=== PATIENT | male | born 1970 ===

== ENCOUNTER 2023-07-20 04:54 | Day surgery (SDC) | payer SELFPAY ==
[2023-07-19 14:49] VITALS: BMI 32.9
[2023-07-20] MEDS ORDERED: FENTANYL CITRATE/PF 50 MCG/ML VIAL ONE (07:20)
[2023-07-20] MEDS ORDERED: MIDAZOLAM HCL 2 MG/2 ML SINGLE DOSE VIAL ONE ×2 (07:21→07:23)
[2023-07-20] MEDS ORDERED: PROPOFOL 40 ML ONE (07:21)
[2023-07-20] MEDS ORDERED: ROPIVACAINE HCL 0.5% 30ML VIAL ONE (07:27)
[2023-07-20] MEDS ORDERED: DEXAMETHASONE SOD PHOSPHATE 4 MG/1 ML VIAL ONE (07:27)
[2023-07-20] MEDS ORDERED: ceFAZolin SODIUM 1 GM VIAL IVPB ONE (08:25)
[2023-07-20] MEDS ORDERED: ceFAZolin SODIUM 1 GM VIAL ONE (08:27)
[2023-07-20] MEDS ORDERED: oxyCODONE HCL 5 MG TABLET PO PRN (09:41)
[2023-07-20] MEDS ORDERED: LACTATED RINGERS SOLUTION 1,000 ML IV SCH (09:45)
[2023-07-20 10:50] VITALS: RESP 16
[2023-07-20 12:11] VITALS: BP 145/83; PULSE 64; TEMP 97.8
== END 2023-07-20 12:30 | disposition home or self-care (01) ==
LOC: JASU-SURG 04:54
PROVIDERS: ATTEND Orthopaedic Surgery
CPT/HCPCS: 94760; C1713